=== PATIENT | female | born 1985 | race Caucasian/White ===

== ENCOUNTER → 2022-12-06 10:35 | Outpatient (BNVA) | payer OTHER, SELFPAY | PROVIDERS: Family Provider Emergency Medicine; PCP Family Medicine; Visit Provider Internal Medicine Rheumatology | DX: Z79.899 Other long term (current) drug therapy (principal); M19.90 Unspecified osteoarthritis, unspecified site; L98.9 Disorder of the skin and subcutaneous tissue, unspecified; R76.8 Other specified abnormal immunological findings in serum; Z11.59 Encounter for screening for other viral diseases; Z71.85 Encounter for immunization safety counseling | CPT/HCPCS: 36415; 80076; 82306; 82565; 85025; 85651; 86036; 86140; 86160; 86162; 86200; 86235; 86255; 86376; 86431; 86704; 86800; 86803; 87340 ==

== ENCOUNTER 2023-03-19 19:28 | Emergency (ER) | payer OTHER, SELFPAY ==
[2023-03-19] VITALS (10 sets, daily range): BP systolic 105–154; BP diastolic 78–98; PULSE 66–92; RESP 14–22; TEMP 36.7; O2SAT 95–99; BMI 25.7
--- NOTE | 2023-03-19 19:33 | ECG_ITS ---
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 Measurements Intervals [place] Rate: 78 P: 0 [place]: 0 QRS: 85 QRSD: 73 T: 40 QT: 360 QTc: 412 Interpretive Statements ATRIAL FIBRILLATION INDETERMINATE AXIS LOW QRS VOLTAGE [QRS DEFLECTION < 0.5/1.0 mV IN LIMB/CHEST LEADS] POSSIBLE RIGHT VENTRICULAR CONDUCTION DELAY [RSR (QR) IN V1/V2] PROBABLE LATERAL MYOCARDIAL INFARCTION , PROBABLY OLD [35 ms Q WAVE IN I/aVL/V5/V6] No previous ECG available for comparison Electronically Signed On 03-20-2023 16:49:14 CDT by Yuly Gavin M.D. [id number]
--- NOTE | 2023-03-19 19:38 | XRR_ITS ---
PROCEDURE INFORMATION: Exam: XR Chest Exam date and time: 03/19/2023 7:41 PM Age: 37 years old Clinical indication: Chest wall pain; Additional info: Cp TECHNIQUE: Imaging protocol: Radiologic exam of the chest. Views: 1 view. COMPARISON: No relevant prior studies available. FINDINGS: Lungs: Unremarkable. No consolidation. Pleural spaces: Unremarkable. No pleural effusion. No pneumothorax. Heart/Mediastinum: Cardiomegaly. Bones/joints: Sternotomy wires. XR/XR chest 1V portable [id number] IMPRESSION: Cardiomegaly, negative for infiltrate.
--- NOTE | 2023-03-19 19:49 | ED_ITS ---
HPI - Chest Pain General: Chief Complaint: Chest Pain Stated Complaint: CP SOB Time Seen by Provider: 03/19/23 19:35 Source: patient Mode of arrival: ambulatory Limitations: no limitations History of Present Illness: 37-year-old female states an hour ago started having a sharp left-sided chest pain. She states that she states pain is much worse with inspirations feels like she cannot breathe she states she feels very anxious as well she had pain like this in the past she denies any fever or cough. Denies any improving factors. She rates her pain an 8 out of 10 currently Associated symptoms: Reports dyspnea; Deny abdominal pain, fever(s), nausea or vomiting Review of Systems Const: Denies: fever(s), chills, body aches or change in appetite Eyes: Denies: blurry vision or eye discomfort ENMT: Denies: throat pain or dental pain Card: Reports: chest pain Resp: Reports: dyspnea GI: Denies: abdominal pain, nausea, vomiting or diarrhea : Denies: dysuria Musc: Denies: neck pain or back pain Skin/Breast: Denies: rash Neuro: Denies: headache(s) PFSH ED PFSH: Medical History Arthropod bite High risk medication use Immunization counseling Inflammatory arthritis Seronegative rheumatoid arthritis of both hands Skin lesions, generalized Surgical History History of delivery History of cholecystectomy History of hysterectomy with bilateral oophorectomy History of knee surgery Hx of breast augmentation Family History Other CAD (coronary artery disease) Cancer Diabetes Family history of premature coronary artery disease Hyperlipidemia Hypertension Lupus Rheumatoid arthritis Stroke Denies family history of Chronic kidney disease (CKD) Lung disease Social History Smoking and tobacco status: current every day smoker e-cigarettes Alcohol intake: never Physical Exam Const: COMMON NORMALS: no acute distress, patient oriented x3 and healthy appearing HENMT: COMMON NORMALS: normocephalic and atraumatic HEAD & SCALP: normocephalic and atraumatic Eye: COMMON NORMALS: Equal, round and reactive pupils present and EOMs intact bilaterally PUPIL: Yes Equal, round and reactive pupils present Neck/C-Spine: COMMON NORMALS: full ROM and supple Chest: COMMONS NORMALS: normal inspection of the chest and normal palpation of entire chest wall Resp: COMMON NORMALS: normal respiratory effort, No retractions, No use of accessory muscles and clear to auscultation bilaterally AUSCULTATION: clear to auscultation bilaterally Cardio: COMMON NORMALS: regular rate, regular rhythm and No murmurs present (Cardio) RATE: regular rate RHYTHM: regular rhythm GI: COMMON NORMALS: Normal to inspection, nondistended, normoactive bowel sounds present, Soft to palpation, non-tender and no masses PALPATION: Yes Soft to palpation Extremity: COMMON NORMALS: normal to inspection and full ROM Neuro: COMMON NORMALS: patient oriented x3, moves all extremities and no focal motor deficits Psych: COMMON NORMALS: mental status grossly normal, Normal thought process present and cooperative THOUGHT PROCESS: Normal thought process present Skin: COMMON NORMALS: no rashes or lesions noted and no wounds GENERAL SKIN EXAM: no rashes or lesions noted Course Vital Signs: Vital signs: Vital Signs Temperature 98.1 F 03/19/23 19:31 Pulse Rate 66 03/19/23 22:53 Respiratory Rate 18 03/19/23 22:53 Blood Pressure 105/78 03/19/23 22:53 Pulse Oximetry 99 03/19/23 22:53 Oxygen Delivery Me thod Room Air 03/19/23 22:53 MDM - Chest Pain Medical Decision Making Patient's anterior chest pains atypical in nature her troponins EKG here are normal CT of her chest is normal as well no signs of PE her pain has improved here she has no abdominal pain she is in no distress she is stable for discharge she is to follow-up with PCP and return if worsening. Medical Records I reviewed the patient's medical records. Lab Data I reviewed the patient's lab results. 03/19/23 19:53 03/19/23 19:53 Radiology Impressions Chest X-Ray 03/19/23 19:38 IMPRESSION: Cardiomegaly, negative for infiltrate. Chest CTA 03/19/23 20:26 IMPRESSION: 1. Negative for pulmonary embolus. 2. Cardiomegaly. 3. Cholecystectomy. Laboratory Results WBC 7.6 10^3/uL (4.0-10.0) 03/19/23 19:53 RBC 3.89 10^6/uL (4.1-5.3) L 03/19/23 19:53 Hgb 11.7 g/dL (11.5-15.3) 03/19/23 19:53 Hct 35.1 % (37.0-47.0) L 03/19/23 19:53 MCV 90.2 fl (81-99) 03/19/23 19:53 MCH 30.1 pg (28.0-34.0) 03/19/23 19:53 MCHC 33.3 g/dL (30.0-36.0) 03/19/23 19:53 RDW 12.0 % (12.1-15.1) L 03/19/23 19:53 Plt Count 364 10^3/cmm (130-400) 03/19/23 19:53 MPV 9.8 fL (7.4-10.4) 03/19/23 19:53 Neut % (Auto) 53.3 % 03/19/23 19:53 Lymph % (Auto) 37.5 % 03/19/23 19:53 Cedar % (Auto) 7.7 % 03/19/23 19:53 Eos % (Auto) 1.2 % 03/19/23 19:53 Baso % (Auto) 0.0 % 03/19/23 19:53 Neut # (Auto) 4.06 10^3/uL (1.8-7.7) 03/19/23 19:53 Lymph # (Auto) 2.9 10^3/uL (0.8-4.8) 03/19/23 19:53 Cedar # (Auto) 0.6 10^3/uL (0.2-0.9) 03/19/23 19:53 Eos # (Auto) 0.1 10^3/uL (0.0-0.8) 03/19/23 19:53 Baso # (Auto) 0.0 10^3/uL (0.0-0.1) 03/19/23 19:53 Nucleated RBC % (auto) 0 % 03/19/23 19:53 Nucleated RBCs # 0.0 /100WBC 03/19/23 19:53 PT 13.10 SECONDS (12.1-14.9) 03/19/23 19:53 INR 0.96 (0.8-1.2) 03/19/23 19:53 D-Dimer 0.73 ug/mIFEU (0-0.59) H 03/19/23 19:53 Sodium 136 mmol/L (136-145) 03/19/23 19:53 Potassium 3.4 mmol/L (3.5-5.1) L 03/19/23 19:53 Chloride 102 mmol/L (98-107) 03/19/23 19:53 Carbon Dioxide 22 mmol/L (22-29) 03/19/23 19:53 Anion Gap 15.4 (5-19) 03/19/23 19:53 BUN 6 mg/dL (6-20) 03/19/23 19:53 Creatinine 0.7 mg/dL (0.5-0.9) 03/19/23 19:53 GFR Calculation 93.6 mL/min (90-130) 03/19/23 19:53 Glucose 120 mg/dL (65-115) H 03/19/23 19:53 Calculated Osmolality 281 mOsm/kg (285-295) L 03/19/23 19:53 Calcium 9.0 mg/dL (8.5-10.5) 03/19/23 19:53 Total Bilirubin 0.2 mg/dL (0.15-1.2) 03/19/23 19:53 AST 11 U/L (0-32) 03/19/23 19:53 ALT 12 U/L (0-33) 03/19/23 19:53 Alkaline Phosphatase 72 U/L (35-105) 03/19/23 19:53 Troponin T Baseline 6 ng/L (0-10) 03/19/23 19:53 Troponin T 120 Minute 6.00 ng/L (0-10) 03/19/23 21:38 Delta Troponin T 0 ABS# (0-10) 03/19/23 21:38 NT-Pro-B Natriuret Pep 67 pg/mL (0-125) 03/19/23 19:53 Total Protein 7.2 g/dL (6.6-8.7) 03/19/23 19:53 Albumin 4.4 g/dL (3.5-5.2) 03/19/23 19:53 Globulin 2.8 g/dL (1.3-4.6) 03/19/23 19:53 Lipase 23 U/L (13-60) 03/19/23 21:38 Discharge Plan Discharge Patient Disposition: Home Clinical Impression: Chest pain Condition: Stable Prescriptions: No Action olanzapine [Zyprexa] 10 mg tablet 10 mg PO DAILY tizanidine 2 mg capsule 2 mg PO TID PRN duloxetine [Cymbalta] 60 mg capsule,delayed release(DR/EC) 60 mg PO DAILY ondansetron HCl 8 mg tablet 8 mg PO Q12H [id number] [Fioricet] PO prednisone 20 mg tablet See Rx Instructions PO .COMPLEX Qty: 30 0RF Rx Instructions: 2tabs daily x5days, then 1.5tabs daily x5days then 1 tab daily x5days then stay on 0.5 tab daily orally; clobetasol 0.05 % ointment 1 applic topical BID 14 Days Qty: 60 2RF Rx Instructions: Apply to trunk and legs/feet no more than 2 wks/month, not for face or skin folds. mupirocin 2 % ointment 1 applic topical BID Qty: 15 1RF Rx Instructions: Apply to affected area twice a day, as needed pantoprazole 40 mg tablet,delayed release (DR/EC) 40 mg PO DAILY Qty: 30 3RF leflunomide 20 mg tablet 20 mg PO DAILY Qty: 30 3RF prednisone 10 mg tablet See Rx Instructions .ROUTE .COMPLEX Qty: 90 1RF Rx Instructions: 3 tabs daily x5days, then 2 tabs daily x5days,1.5 tab daily x5 days, 1 tab daily [id number], stay on 0.5 tab daily cholecalciferol (vitamin D3) 1,250 mcg (50,000 unit) capsule 50,000 unit PO Q7D Qty: 15 3RF Discharge Orders: Discharge ED (Routine); Ordered 03/19/23 Ordered By: Rosa Du Referrals: Ramona Knox MD [Family Provider] - 1-3 days Nellie Lamar DO [Primary Care Provider] - Discharge Diet: Advance as tolerated Discharge Activity: Resume usual activity Patient Instructions: Chest Pain (ED) Coding Level of Care Code ED 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
[2023-03-19] MEDS: LORazepam 1 mg Tablet PO (19:52)
[2023-03-19] MEDS: aspirin 325 mg Tablet PO (19:52)
[2023-03-19 20:04] LABS: Eosinophils # 0.1 10^3/uL (0.0-0.8); Eosinophils % 1.2 %; Hematocrit 35.1 % (37.0-47.0); Hemoglobin 11.7 g/dL (11.5-15.3); Lymphocytes # 2.9 10^3/uL (0.8-4.8); Lymphocytes % 37.5 %; Mean Corpuscular HGB Conc 33.3 g/dL (30.0-36.0); Mean Corpuscular Hemoglobin 30.1 pg (28.0-34.0); Mean Corpuscular Volume 90.2 fl (81-99); Mean Platelet Volume 9.8 fL (7.4-10.4); Monocytes # 0.6 10^3/uL (0.2-0.9); Monocytes % 7.7 %; Neutrophils # 4.06 10^3/uL (1.8-7.7); Neutrophils % 53.3 %; Nucleated Red Blood Cells % 0 %; Platelet Count 364 10^3/cmm (130-400); Red Blood Count 3.89 10^6/uL (4.1-5.3); White Blood Count 7.6 10^3/uL (4.0-10.0)
[2023-03-19 20:19] LABS: Troponin(5th) Baseline 6 ng/L (0-10)
[2023-03-19 20:20] LABS: INR 0.96 (0.8-1.2)
[2023-03-19 20:23] LABS: D Dimer 0.73 ug/mIFEU (0-0.59)
--- NOTE | 2023-03-19 20:26 | CTR_ITS ---
PROCEDURE INFORMATION: Exam: CTA Chest With Contrast Exam date and time: 03/19/2023 8:33 PM Age: 37 years old Clinical indication: Pain; Chest pressure; Prior surgery; Surgery date: 6+ months; Surgery type: Ashley; Additional info: Cp TECHNIQUE: Imaging protocol: Computed tomographic angiography of the chest with contrast. Exam focused on the arteries. 3D rendering (Not supervised by radiologist): MIP and/or 3D reconstructed images were created by the technologist. Radiation optimization: All CT scans at this facility use at least one of these dose optimization techniques: automated exposure control; mA and/or kV adjustment per patient size (includes targeted exams where dose is matched to clinical indication); or iterative reconstruction. Contrast material: OMNI 350; Contrast volume: 100 ml; Contrast route: INTRAVENOUS (IV); REPORTING DATA: Count of CT and Cardiac NM exams in prior 12 months: This patient has received 0 known CTs and 0 known cardiac nuclear medicine studies in the 12 months prior to the current study. COMPARISON: CR (CHEST, ) 03/19/2023 7:41 PM RADIATION DOSE METRICS: Total DLP (mGy-cm): 327.43 FINDINGS: Pulmonary arteries: Normal. No pulmonary emboli. Aorta: Unremarkable. No aortic aneurysm. No aortic dissection. Lungs: Unremarkable. No consolidation. No masses. Pleural spaces: Unremarkable. No pneumothorax. No pleural effusion. Heart: Cardiomegaly. Lymph nodes: Unremarkable. No enlarged lymph nodes. Gallbladder and bile ducts: Cholecystectomy. Bones/joints: Unremarkable. No acute fracture. Soft tissues: Unremarkable. CT/CT angio chest PE protcl [id number] IMPRESSION: 1. Negative for pulmonary embolus. 2. Cardiomegaly. 3. Cholecystectomy.
[2023-03-19 20:28] LABS: Alanine Aminotransferase 12 U/L (0-33); Albumin Level 4.4 g/dL (3.5-5.2); Alkaline Phosphatase 72 U/L (35-105); Anion Gap 15.4 (5-19); Aspartate Amino Transferase 11 U/L (0-32); Blood Urea Nitrogen 6 mg/dL (6-20); Carbon Dioxide 22 mmol/L (22-29); Chloride 102 mmol/L (98-107); Globulin 2.8 g/dL (1.3-4.6); Glomerular Filtration Rate 93.6 mL/min (90-130); Glucose 120 mg/dL (65-115); NT Pro B Type Natriuretic Pept 67 pg/mL (0-125); Osmolality Calculated 281 mOsm/kg (285-295); Potassium 3.4 mmol/L (3.5-5.1); Sodium 136 mmol/L (136-145); Total Bilirubin 0.2 mg/dL (0.15-1.2); Total Protein 7.2 g/dL (6.6-8.7)
[2023-03-19] MEDS: iohexol 350 mg/mL 500 mL Btl (per mL) IV (20:37)
[2023-03-19] MEDS: morphine 4 mg/mL SDV 1 mL IVP (20:50)
[2023-03-19] MEDS: ondansetron 2 mg/ML SDV 2 mL 4 MG IVP (20:50)
--- NOTE | 2023-03-19 21:39 | ECG_ITS ---
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 Measurements Intervals [place] Rate: 70 P: 59 CO: 160 QRS: 28 QRSD: 68 T: 7 QT: 393 QTc: 426 Interpretive Statements SINUS RHYTHM LOW QRS VOLTAGE IN PRECORDIAL LEADS [QRS DEFLECTION < 1.0 mV IN CHEST LEADS] No previous ECG available for comparison Electronically Signed On 03-20-2023 17:01:42 CDT by Yuly Gavin M.D. [email or web address]
[2023-03-19] MEDS: HYDROcodone-acetaminophen 7.5-325 mg Tablet 1 TAB PO (22:31)
[2023-03-19 22:43] LABS: Lipase 23 U/L (13-60)
[2023-03-19 22:49] LABS: Troponin 5 2HR Delta 0 ABS# (0-10)
== END 2023-03-19 22:59 | disposition home or self-care (01) ==
PROVIDERS: Emergency Provider Emergency Medicine; Family Provider Emergency Medicine; PCP Family Medicine
DX: R07.9 Chest pain, unspecified (principal); Z79.899 Other long term (current) drug therapy
CPT/HCPCS: 71045; 71275; 80053; 83690; 83880; 84484; 85025; 85378; 85610; 93005; 96374; 96375; 99285; J2270; J2405; Q9967